=== PATIENT | male | born 1990 | race American Indian/Alaskan Native ===

== ENCOUNTER 2021-12-17 15:11 | Emergency (ER) | payer SELFPAY ==
[2021-12-17 16:28] VITALS: BP 149/96
[2021-12-17] MEDS ORDERED: hydrOXYzine PAMOATE 25 MG CAP PO ONE (16:46)
[2021-12-17] MEDS ORDERED: ONDANSETRON 4 MG ODT TAB PO ONE (16:46)
--- NOTE | 2021-12-17 17:19 | XRay Report ---
CHEST 2 VIEWS INDICATION: chest pain. COMPARISON: 10/07/2013. FINDINGS: Support devices: None. Heart: Within normal limits. Lungs/Pleura: No acute air space or interstitial disease. No significant pleural effusion. IMPRESSION: No acute findings. Signer Name: Gumaro Islas MD Signed: 12/17/2021 5:14 PM Workstation Name: [id number]
[2021-12-17 18:20] LABS: Alanine Aminotransferase 222 units/L (7-56); Albumin 4.8 g/dL (3.9-5); Blood Urea Nitrogen 11 mg/dL (9-20); Calcium 9.5 mg/dL (8.4-10.2); Hemolysis Index 14
[2021-12-17 18:27] LABS: BUN/Creatinine Ratio 18; Hematocrit 42.5 % (35.5-45.6); Mean Corpuscular HGB Conc 35 % (32-34); Mean Corpuscular Volume 106 fl (84-94); Platelet Count 207 K/mm3 (140-440); Red Blood Count 4.02 M/mm3 (3.65-5.03); Red Cell Distribution Width 12.5 % (13.2-15.2)
--- NOTE | 2021-12-17 18:40 | Emergency Department Report ---
ED General Adult HPI - General Chief complaint: Dizziness Stated complaint: FEELING FAINT (WEAK) Time Seen by Provider: 12/17/21 16:44 Source: patient Mode of arrival: Ambulatory Limitations: No Limitations - History of Present Illness Initial comments: 31 yom with pmh of HTN and asthma presents to ed for evaluation of feeling weak and jittery the past few days. He states that he had one episode of vomiting yesterday. He denies cp, sob, fever, and dizziness. He states that he feels like he felt when he had a low K. -: Gradual, During the night Improves with: none Worsens with: none Associated Symptoms: weakness. denies: confusion, chest pain, cough, diaphoresis, fever/chills, headaches, loss of appetite, malaise, nausea/vomiting, rash, shortness of breath, syncope Treatments Prior to Arrival: none - Related Data Previous Rx's Medication Instructions Recorded Last Taken Type Albuterol Sulfate [Ventolin HFA] 8 gm IH QID PRN #1 hfa.aer.ad 07/09/15 Unknown Rx Fluticasone [Flonase] 1 spray NS QDAY #1 bottle 07/09/15 Unknown Rx Loratadine (Nf) [Claritin (Nf)] 10 mg PO DAILY #30 tablet 07/09/15 Unknown Rx Prednisone [predniSONE 10 mg 10 mg PO .TAPER #1 tab.ds.pk 07/09/15 Unknown Rx (6-Day Pack, 21 Tabs)] hydrOXYzine PAMOATE [Vistaril] 25 mg PO Q6HR PRN #21 capsule 12/17/21 Unknown Rx Allergies Allergy/AdvReac Type Severity Reaction Status Date / Time amoxicillin [Amoxicillin] Allergy Rash Verified 01/26/15 14:49 Penicillins Allergy Rash Verified 01/26/15 14:49 ED Review of Systems ROS: Stated complaint: FEELING FAINT (WEAK) Other details as noted in HPI Comment: All other systems reviewed and negative Constitutional: denies: chills, fever, weakness Eyes: denies: eye pain ENT: denies: ear pain Respiratory: denies: cough, shortness of breath, SOB with exertion, SOB at rest Cardiovascular: denies: chest pain, palpitations, dyspnea on exertion Endocrine: no symptoms reported Gastrointestinal: denies: abdominal pain, nausea, vomiting, constipation, hematemesis, melena, hematochezia Genitourinary: denies: urgency, dysuria Musculoskeletal: denies: back pain, joint swelling Skin: denies: rash, lesions Neurological: weakness. denies: headache, numbness, paresthesias, confusion, abnormal gait Psychiatric: denies: as per HPI Hematological/Lymphatic: denies: easy bleeding, easy bruising ED Past Medical Hx - Past Medical History Hx Asthma: Yes - Social History Smoking Status: Heavy Tobacco Smoker Substance Use Type: Alcohol - Medications Home Medications: Home Medications Medication Instructions Recorded Confirmed Last Taken Type Albuterol Sulfate [Ventolin HFA] 8 gm IH QID PRN #1 hfa.aer.ad 07/09/15 Unknown Rx Fluticasone [Flonase] 1 spray NS QDAY #1 bottle 07/09/15 Unknown Rx Loratadine (Nf) [Claritin (Nf)] 10 mg PO DAILY #30 tablet 07/09/15 Unknown Rx Prednisone [predniSONE 10 mg 10 mg PO .TAPER #1 tab.ds.pk 07/09/15 Unknown Rx (6-Day Pack, 21 Tabs)] hydrOXYzine PAMOATE [Vistaril] 25 mg PO Q6HR PRN #21 capsule 12/17/21 Unknown Rx ED Physical Exam - General Limitations: No Limitations General appearance: alert, in no apparent distress - Head Head exam: Present: atraumatic, normocephalic - Eye Eye exam: Present: normal appearance. Absent: conjunctival injection - Neck Neck exam: Present: normal inspection, full ROM. Absent: tenderness, lymphadenopathy - Respiratory Respiratory exam: Present: normal lung sounds bilaterally. Absent: respiratory distress, wheezes, rales, rhonchi, stridor, chest wall tenderness, accessory muscle use - Cardiovascular Cardiovascular Exam: Present: normal rhythm, tachycardia, normal heart sounds - GI/Abdominal GI/Abdominal exam: Present: soft, normal bowel sounds. Absent: distended, tenderness, guarding, rebound - Extremities Exam Extremities exam: Present: normal inspection, full ROM - Back Exam Back exam: Present: normal inspection. Absent: full ROM, tenderness, CVA tenderness (R), CVA tenderness (L), muscle spasm, paraspinal tenderness, vertebral tenderness - Neurological Exam Neurological exam: Present: alert, oriented X3 - Psychiatric Psychiatric exam: Present: normal affect, normal mood - Skin Skin exam: Present: warm, dry, intact, normal color ED Course Vital Signs 12/17/21 16:25 Temperature 98.5 F Pulse Rate 101 H Respiratory 18 Rate Blood Pressure 149/96 [Right] O2 Sat by Pulse 99 Oximetry - Reevaluation(s) Reevaluation #1: 12/17/21 18:40 Patient states that he feels better and jittery feeling is gone. ED Medical Decision Making - Lab Data Result diagrams: 12/17/21 17:09 12/17/21 17:09 - Radiology Data Radiology results: report reviewed, image reviewed Chest xray without any acute abnormalities. - Medical Decision Making 31 yom with pmh of HTN and asthma presents to ed for evaluation of feeling weak and jittery the past few days. He states that he had one episode of vomiting yesterday. He denies cp, sob, fever, and dizziness. He states that he feels like he felt when he had a low K. Chest xray without any abnormalities. LFT's slightly elevated, but no other gross abnormalities noted to labs. Patient states that jitteriness has resolved after medication. Patient was advised to follow up with pcp or GI for further evaluation. He verbalized understanding of and agreement with plan of care. Critical care attestation.: If time is entered above; I have spent that time in minutes in the direct care of this critically ill patient, excluding procedure time. ED Disposition Clinical Impression: Feeling jittery Disposition: 01 HOME / SELF CARE / HOMELESS Is pt being admited?: No Does the pt Need Aspirin: No Condition: Stable Instructions: Generalized Anxiety Disorder, Adult Additional Instructions: Take medications as prescribed. Follow-up with primary care provider if worsening symptoms. Prescriptions: hydrOXYzine PAMOATE [Vistaril] 25 mg PO Q6HR PRN #21 capsule PRN Reason: Anxiety Referrals: JOSE JUAN ARMSTRONG MD [Referring] - 3-5 Days Time of Disposition: 18:42
== END 2021-12-17 21:06 | disposition home or self-care (01) ==
LOC: ED 15:11
DX: R45.0 Nervousness (principal); R11.10 Vomiting, unspecified; I10 Essential (primary) hypertension; J45.909 Unspecified asthma, uncomplicated; F17.200 Nicotine dependence, unspecified, uncomplicated; Z72.89 Other problems related to lifestyle; Z88.1 Allergy status to other antibiotic agents; Z88.0 Allergy status to penicillin; Z79.899 Other long term (current) drug therapy
CPT/HCPCS: 36415; 71046; 80053; 80320; 85027; 99283; J3490; G0480; Q0162